=== PATIENT | female | born 1985 | race Caucasian/White ===

== ENCOUNTER 2021-03-27 01:26 | Outpatient (CLI) | payer MEDICAID, SELFPAY ==
[2021-03-27 01:44] VITALS: BP 139/83; PULSE 103; TEMP 36.4
[2021-03-27 01:55] LABS: Glucose Point of Care 109 mg/dL (70-110)
[2021-03-27 02:02] VITALS: RESP 17
--- NOTE | 2021-03-27 02:02 | USR_ITS ---
PROCEDURE INFORMATION: Exam: US , Limited Exam date and time: 03/27/2021 2:02 AM Age: 35 years old Clinical indication: Lmp or gestational age (in weeks): 39w6d; Antepartum complications; Bleeding; ; Additional info: Evaluate placental location TECHNIQUE: Imaging protocol: Real-time ultrasound of the maternal uterus with image documentation. Exam focused on the clinical indication. COMPARISON: No relevant prior studies available. FINDINGS: Single living fetus in cephalic position. heart activity documented by the technologist, 153 bpm. Anterior placenta. No placenta previa or other visible placental abnormality on the provided images. Subjectively, amniotic fluid volume appears lower range of normal for gestation. MALAIKA was not measured at this time. Deepest vertical pocket of fluid measured 2.7 cm. Cervical length was estimated with transabdominal scanning, measuring approximately 3.2 cm. No definite cervical canal dilation or fluid on the provided images. However, the area of the cervix is not well visualized with transabdominal scanning at this time. measurements were not obtained at this time. Evaluation of anatomy was not performed at this time. No visible maternal adnexal abnormality. The urinary bladder was not completely evaluated/imaged at this time. US/US OB limited [id number] IMPRESSION: 1. Single living fetus, details above. 2. Anterior placenta. No visible placental abnormality on the provided images. 3. Other details discussed above.
[2021-03-27 02:09] VITALS: BMI 41.0
[2021-03-27 02:24] LABS: Amphetamines Screen Urine Negative (Negative); Barbiturates Screen Urine Negative (Negative); Benzodiazepines Screen Urine Negative (Negative); Cocaine Screen Urine Negative (Negative); Opiate Screen Urine Negative (Negative); PCP Screen Urine Negative (Negative); THC Screen Urine Negative (Negative)
[2021-03-27 02:55] VITALS: BP 139/83; PULSE 106; RESP 17; TEMP 36.4
--- NOTE | 2021-03-27 19:34 | PM.ACPR ---
Procedure/Consent Procedure Narrative: NONSTRESS TEST: Place of test: [facility] [place] Indication: 35-year-old, term -no care, vaginal bleeding Date and time of test: 03/27/2021-2:00 AM Baseline: 135 Variability: Moderate variability Accelerations: Present Decelerations: None Tocometry: Irregular contractions INTERPRETATION: NST reactive, continue kick counts
== END 2021-03-27 03:15 | disposition home or self-care (01) ==
LOC: OPOB 01:27 → OBGYN 01:27
PROVIDERS: Visit Provider Obstetrics & Gynecology
DX: O20.9 Hemorrhage in early pregnancy, unspecified (principal); Z3A.00 Weeks of gestation of pregnancy not specified
CPT/HCPCS: 36416; 59025; 76815; 80306; 82962; 99211

== ENCOUNTER 2021-03-30 11:35 | Outpatient (CLI) | payer MEDICAID, SELFPAY ==
--- NOTE | 2021-03-30 12:37 | US_ITS ---
WS: [id number] ULTRASOUND OB LIMITED TECHNIQUE: Limited ultrasound examination of the fetus. CLINICAL INFORMATION: no care COMPARISON: None. FINDINGS: Cervix not visualized. Single interuterine gestation. presentation is vertex Placental location is anterior. Placenta grade: 2 heart rate 167 BPM. Normal MALAIKA 9.17CM Gestational age 38 weeks 5 days Estimated date of delivery April 08, 2021 Limited anatomy evaluation demonstrates normal stomach and kidneys. Normal bladder. profile and three-vessel cord are visualized. Normal four-chamber heart view. Biophysical profile 8 out of 8. breathin movement: 2 tone: 2 Amniotic fluid: 2 US/US OB lmt w/ BPP wo NST IMPRESSION: 1. Normal biophysical profile 8 out of 8 2. Normal limited anatomy evaluation.
[2021-03-30 12:57] LABS: Nitrazine Paper, PH Negative
[2021-03-30 13:27] VITALS: BMI 41.0
[2021-03-30 14:08] LABS: Hepatitis B Surface Antigen Non-Reactive (Nonreactive)
[2021-03-30 14:18] LABS: HIV 1 & 2 Antibody Non-Reactive (Non-Reactiv); HIV 1 & 2 Antigen Non-Reactive (Non-Reactiv)
[2021-03-30 14:21] LABS: Rapid Plasma Reagin Syphilis Nonreactive (Nonreactive)
[2021-03-31 20:13] LABS: Quest SARS-CoV-2 RNA NOT DETECTED (NOT DETECTED)
== END 2021-03-30 14:40 | disposition home or self-care (01) ==
LOC: OPOB 11:45 → OBGYN 11:46
PROVIDERS: Visit Provider Family Medicine
DX: O26.899 Other specified pregnancy related conditions, unspecified trimester (principal); Z3A.00 Weeks of gestation of pregnancy not specified; N89.8 Other specified noninflammatory disorders of vagina
CPT/HCPCS: 36415; 59025; 76815; 76819; 80500; 83986; 86592; 86762; 86850; 86870; 86900; 87081; 87340; 87491; 87591; 87635; 87806; 99211

== ENCOUNTER 2021-03-31 03:25 | Inpatient (IN) | payer MEDICAID, SELFPAY ==
[2021-03-31] VITALS (20 sets, daily range): BP systolic 103–129; BP diastolic 55–82; PULSE 82–104; RESP 16–18; TEMP 36.2–36.6; BMI 41.0
[2021-03-31] MEDS: oxytocin 30 UNIT/500 ML BAG 999 UNIT IV (03:55)
[2021-03-31] MEDS: ketorolac 30 mg/mL INJ IM (03:55)
[2021-03-31] MEDS: lactated ringers 1,000 ML 150 ML IV (03:55)
--- NOTE | 2021-03-31 04:42 | P.PCNOB_ITS ---
Delivery Note: Date of delivery: March 31, 2021 Pre-Delivery Course: The patient delivered at [facility]. She was transferred here for and care. She had very little care in [place] (2-3 visits). Her was working for the [email or web address] and lost his job. Her JORDAN 03/28/21 was by her LMP and a 19 wk u/s. putting her at 40w 3d at delivery. She presented on 03/30/21 for triage and her labs were drawn but are still pending. She did have an ultrasound that placed her at 38 weeks 5 days gestation and BPP 8/8. At that time she was not ruptured, she was not having any regular contractions, and she was not making any cervical change so she was discharged home. She presented overnight via ambulance to [facility] in active labor and delivered there. Rupture of membranes is estimated to be less than 1 hour prior to delivery. I was contacted by the ER physician at [facility] with request to transfer the patient for delivery of the placenta. Also for transfer of the infant for routine care. The ER physician stated that the had lower Apgars but was improved and stable for transfer. He reported the mother was having some significant abdominal pain. Delivery: On my arrival the patient was in bed moaning and complaining of abdominal pain. The umbilical cord was protruding from the vagina and had been clamped with a hemostat. There was a mild to moderate amount of blood on her chucks and bed sheets. I am estimating 200 mL. The placenta was palpated just inside the introitus and the patient was encouraged to push. With gentle traction on the umbilical cord the placenta was delivered grossly intact and normal to inspection. There was about 200 mL of clot behind the placenta. There was a very small second-degree perineal laceration that was already hemostatic so it was not sutured. A&P Assessment and plan (1) (normal spontaneous vaginal delivery): Status: Acute (2) Insufficient care, delivered, current hospitalization: Status: Acute (3) Multigravida of advanced maternal age: Status: Acute Coding Level of Care Code Acute Parcel Post Clerk for Chg Fwd Diagnoses (normal spontaneous vaginal delivery) O80 Insufficient care, delivered, current hospitalization O09.30 Multigravida of advanced maternal age O09.529
[2021-03-31] MEDS: benzocaine-menthol 78 gm Canister 1 SPRAY TOPICAL (05:46)
[2021-03-31] MEDS: HYDROcodone-acetaminophen 5-325 mg Tablet PO (05:46)
[2021-03-31] MEDS: lanolin oint 7 gm 1 APPLIC TOPICAL (05:47)
--- NOTE | 2021-03-31 07:12 | PC.NURSE ---
Delivery of baby took place at [facility], mom was transferred here and placenta was delivered at 0406.
[2021-03-31] MEDS: prenatal vitamin Capsule 1 CAP PO (09:16)
[2021-03-31] MEDS: ibuprofen 800 mg tablet PO ×3 (09:16→21:13)
[2021-03-31] MEDS: docusate sodium 100 mg Capsule PO ×2 (09:16→17:01)
[2021-03-31 10:16] LABS: Amphetamines Screen Urine Negative (Negative); Barbiturates Screen Urine Negative (Negative); Benzodiazepines Screen Urine Negative (Negative); Cocaine Screen Urine Negative (Negative); Opiate Screen Urine Positive (Negative); PCP Screen Urine Negative (Negative); THC Screen Urine Negative (Negative)
--- NOTE | 2021-03-31 13:15 | P.HP_ITS ---
Providers/Chief Complaint Admitting Physician: Paola Horta MD Chief Complaint: GAVE History of Present Illness Anabella Cherry is a 35 year old female G6 now P6 who delivered outside of our facility at [facility] in [place]. She and the were transferred here for care and care. Her placenta was undelivered at the time of her arrival. Review of Systems Const: Denies: fever(s) or chills Eyes: Denies: change in vision ENMT: Denies: throat pain or ear or mastoid pain Card: Denies: chest pain or palpitations Resp: Denies: dyspnea or productive cough GI: Reports: abdominal pain (Severe cramping) Musc: Denies: neck pain or back pain Skin/Breast: Denies: rash Neuro: Denies: behavioral changes or Slurred speech present Alli/Lymph: Denies: easy bleeding All/Imm: Denies: urticaria or throat swelling Medications/Allergies Home Medications Medication Instructions Recorded Confirmed Last Taken Type 1 tab PO DAILY 03/27/21 03/27/21 Unknown History Allergies Allergy/AdvReac Type Severity Reaction Status Date / Time No Known Allergies Allergy Verified 03/31/21 07:07 Vitals/I&O/Wt Last Vital Signs Temp 97.5 F L 03/31/21 10:44 Pulse 95 03/31/21 10:44 Resp 18 03/31/21 10:47 BP 103/61 03/31/21 10:44 03/30/21 03/31/21 03/31/21 22:59 06:59 14:59 Intake Total 500 / 500 Output Total 700 / 700 Balance 500 / 500 -700 / -700 Weight last 48 hrs Weight 98.43 kg Physical Exam Const: GENERAL APPEARANCE: in distress (Disheveled and moaning in pain) HENMT: COMMON NORMALS: normocephalic and atraumatic FACE & SINUS: normal facial exam Chest: COMMONS NORMALS: normal inspection of the chest Resp: EFFORT & INSPECTION: Yes able to speak in complete sentences and Yes tachypneic AUSCULTATION: clear to auscultation bilaterally Cardio: RATE: tachycardic GI: COMMON NORMALS: Soft to palpation PALPATION: No Guarding due to palpation present (GI) and No Rigid due to palpation PERCUSSION: Other (Fundus firm U- 2, no appreciable fundal tenderness) : SPECULUM EXAM - VAGINA: Yes vaginal bleeding Amount: small/minimal, Yes tissue present in vagina (Umbilical cord hanging from the vagina with placenta palpable inside introi), Yes swelling and Yes tenderness Extremity: COMMON NORMALS: negative for no calf tenderness and negative for no pedal edema Neuro: COMMON NORMALS: patient oriented x3 and moves all extremities A&P Assessment and plan (1) Multigravida of advanced maternal age: Status: Acute (2) Insufficient care, delivered, current hospitalization: Status: Acute (3) (normal spontaneous vaginal delivery): The patient easily delivered the placenta here. Expectant management for routine care. Status: Acute Attestations Medical Necessity Statement*: Delivery of placenta and routine care Coding Level of Care Code Acute Sales Estimator for Chg Fwd Diagnoses Multigravida of advanced maternal age O09.529 Insufficient care, delivered, current hospitalization O09.30 (normal spontaneous vaginal delivery) O80
[2021-03-31 17:34] LABS: Hematocrit 27.9 % (37.0-47.0); Hemoglobin 8.9 g/dL (11.5-15.3); Mean Corpuscular HGB Conc 31.9 g/dL (30.0-36.0); Mean Corpuscular Hemoglobin 28.9 pg (28.0-34.0); Mean Corpuscular Volume 90.6 fL (81-99); Mean Platelet Volume 12.3 fL (7.4-10.4); Platelet Count 190 10^3/cmm (130-400); Red Blood Count 3.08 10^6/uL (4.1-5.3); Red Cell Distribution Width 14.6 % (12.1-15.1); White Blood Count 13.8 10^3/uL (4.0-10.0)
--- NOTE | 2021-03-31 21:15 | PC.NURSE ---
dr haddad notified of patient's positive UDS. no further orders at this time.
[2021-04-01 05:17] VITALS: BP 119/73; PULSE 97; TEMP 36.3
[2021-04-01] MEDS: docusate sodium 100 mg Capsule PO ×2 (09:58→18:12)
[2021-04-01] MEDS: prenatal vitamin Capsule 1 CAP PO (09:58)
[2021-04-01] MEDS: ibuprofen 800 mg tablet PO ×3 (09:58→20:10)
[2021-04-01 10:00] VITALS: BP 118/68; PULSE 100; TEMP 36.4
[2021-04-01 13:49] VITALS: BP 113/66; PULSE 111
--- NOTE | 2021-04-01 14:41 | PM.PN ---
Subjective Subjective: Interval history: Doing well, minimal vaginal bleeding, ambulating and tolerating a regular diet. Vitals/I&O/Wt Last Vital Signs Temp 97.6 F 04/01/21 10:00 Pulse 111 H 04/01/21 13:49 Resp 18 03/31/21 16:46 BP 113/66 04/01/21 13:49 03/31/21 04/01/21 04/01/21 22:59 06:59 14:59 Output Total 1974 Balance - Weight last 48 hrs Weight 98.43 kg Physical Exam HENMT: COMMON NORMALS: normocephalic and atraumatic HEAD & SCALP: normocephalic and atraumatic Eye: COMMON NORMALS: Equal, round and reactive pupils present and EOMs intact bilaterally PUPIL: Yes Equal, round and reactive pupils present Chest: COMMONS NORMALS: normal inspection of the chest Resp: COMMON NORMALS: normal respiratory effort and clear to auscultation bilaterally EFFORT & INSPECTION: Yes able to speak in complete sentences AUSCULTATION: clear to auscultation bilaterally Cardio: COMMON NORMALS: regular rate and regular rhythm RATE: regular rate RHYTHM: regular rhythm HEART SOUNDS: no murmurs GI: COMMON NORMALS: Soft to palpation (Fundus firm U- 2) PALPATION: Yes Soft to palpation (Fundus firm U- 2), No Guarding due to palpation present (GI) and No Rigid due to palpation Extremity: GENERAL: No calf tenderness and Yes edema (Minimal) Psych: COMMON NORMALS: mental status grossly normal and cooperative Data : 03/31/21 17:15 Attestations Medical Necessity Statement*: Routine care Coding Level of Care Code Acute Executive Office Manager for Jazmine Malcolm
[2021-04-01 18:12] VITALS: BP 119/66; PULSE 86
[2021-04-01 21:03] VITALS: BP 131/61; PULSE 100; TEMP 36.6
[2021-04-02 05:11] VITALS: TEMP 36.7
[2021-04-02 05:12] VITALS: BP 138/79; PULSE 89
[2021-04-02] MEDS: docusate sodium 100 mg Capsule PO (09:01)
[2021-04-02] MEDS: ibuprofen 800 mg tablet PO (09:01)
[2021-04-02] MEDS: prenatal vitamin Capsule 1 CAP PO (09:02)
[2021-04-02 11:00] VITALS: RESP 15
[2021-04-02 11:08] VITALS: BP 127/75; PULSE 85; TEMP 36.3
--- NOTE | 2021-04-02 12:38 | PM.DCS ---
Discharge Providers Date of Admission: 03/31/21 03:25 Date of Discharge: April 02, 2021 Attending Provider at Admission: Paola Horta MD Attending Provider at Discharge: Paola Horta MD Diagnoses at Discharge Discharge Diagnosis (1) (normal spontaneous vaginal delivery): Status: Acute (2) Insufficient care, delivered, current hospitalization: Status: Acute (3) Multigravida of advanced maternal age: Status: Acute Reason for Visit Reason for Visit: GAVE Hospital Course Hospital Course The patient was transferred to [facility] after her delivery at [facility]. Her placenta was delivered here. She had a routine course. She was ambulating, tolerating a regular diet, had minimal vaginal bleeding and was requesting discharge home. Physical Exam Narrative: EXAM NARRATIVE: She was alert and oriented with clear breath sounds and normal heart rate and rhythm. Her abdomen was nontender, fundus was firm and U- 2. She had nonpitting edema with no calf tenderness. Discharge Data Vitals: Last Vital Signs Temp 97.3 F L 04/02/21 11:08 Pulse 85 04/02/21 11:08 Resp 15 04/02/21 11:00 BP 127/75 04/02/21 11:08 Discharge Plan Discharge Patient Disposition: Home Condition: Stable Prescriptions: Continued 1 tab PO DAILY RF: 0 Discharge Orders: Discharge Order (Routine); Ordered 04/02/21 Ordered By: Paola Horta Referrals: Paola Horta MD [Physician] - 1 month Discharge Diet: Usual diet Discharge Activity: Limit activity as instructed Patient Instructions: Your Baby (GEN), and the Working Mom (GEN), How to Hold and Breastfeed Your Baby (GEN), and Nipple Soreness (GEN), Vaginal Delivery (DC), OB Discharge Report, OB Food/Drug Interaction Guide, OB Care at Home, Opioid Safety, OB Home Care, Abnormal Bleeding, Depression Discharge Attestations Time Spent in Discharge Care*: less than 30 min Quality Metrics Clinical Quality Measures During this hospital stay, did patient experience: None Coding Level of Care Code Acute Chg FW DC note Diagnoses (normal spontaneous vaginal delivery) O80 Insufficient care, delivered, current hospitalization O09.30 Multigravida of advanced maternal age O09.529
[2021-04-02 14:44] VITALS: BP 129/77; PULSE 89; TEMP 36.2
[2021-04-02 15:55] VITALS: BP 129/77; PULSE 89; RESP 16; TEMP 36.2
== END 2021-04-02 15:15 | disposition home or self-care (01) | DRG 807 ==
PROVIDERS: Admitting Provider Family Medicine; Visit Provider Family Medicine
DX: Z39.0 Encounter for care and examination of mother immediately after delivery (principal); Z37.0 Single live birth
CPT/HCPCS: 36415; 80306; 85027; 96374; J1885